=== PATIENT | male | born 1975 | race Caucasian/White ===

== ENCOUNTER 2023-01-15 09:35 | Outpatient (CLI) | payer OTHER | END 2023-01-15 09:36 | disposition home or self-care (01) | LOC: CSHRAD 09:35 | PROVIDERS: ATTEND Neurological Surgery | DX: M54.16 Radiculopathy, lumbar region (principal) | CPT/HCPCS: 72100 ==

== ENCOUNTER 2023-02-26 09:26 | Outpatient (CLI) | payer OTHER | END 2023-02-26 09:27 | disposition home or self-care (01) | LOC: CSHRAD 09:26 | PROVIDERS: ATTEND Neurological Surgery | DX: M47.26 Other spondylosis with radiculopathy, lumbar region (principal); Z98.890 Other specified postprocedural states | CPT/HCPCS: 72100 ==